=== PATIENT | female | born 1995 | race Caucasian/White ===

== ENCOUNTER 2020-02-11 08:00 | Outpatient (CLI) | payer MEDICAID ==
[2020-02-11 14:41] LABS: H. PYLORIS ANTIGEN STL POSITIVE (Negative)
== END 2020-02-11 08:01 | disposition home or self-care (01) ==
LOC: LAB.R 08:00
DX: A04.8 Other specified bacterial intestinal infections (principal)
CPT/HCPCS: 87338

== ENCOUNTER 2020-04-20 08:00 | Outpatient (CLI) | payer MEDICAID ==
[2020-04-20 14:58] LABS: H. PYLORIS ANTIGEN STL NEGATIVE (Negative)
== END 2020-04-20 23:59 | disposition home or self-care (01) ==
LOC: LAB.R 08:00
PROVIDERS: ATTEND Internal Medicine
DX: A04.8 Other specified bacterial intestinal infections (principal)
CPT/HCPCS: 87338

== ENCOUNTER 2020-06-18 14:10 | Outpatient (CLI) | payer MEDICAID | END 2020-06-18 14:11 | disposition home or self-care (01) | LOC: COV 14:10 | PROVIDERS: ATTEND Surgery | DX: Z01.812 Encounter for preprocedural laboratory examination (principal); R10.9 Unspecified abdominal pain; R19.4 Change in bowel habit; Z20.822 Contact with and (suspected) exposure to COVID-19 ==

== ENCOUNTER 2020-06-22 09:30 | Day surgery (SDC) | payer MEDICAID ==
[2020-06-22 09:46] LABS: HCG UR QUAL NEGATIVE
[2020-06-22] MEDS ORDERED: LACTATED RINGERS 1,000 ML IV ONE ×2 (09:57→12:53)
[2020-06-22] MEDS ORDERED: fentaNYL 250 MCG/5 ML VIAL ONE (12:06)
[2020-06-22] MEDS ORDERED: MIDAZOLAM 2 MG/2 ML VIAL ONE ×3 (12:06→12:25)
[2020-06-22] MEDS ORDERED: LIDO GARGLE 30 ML BOTTLE ONE (12:07)
[2020-06-22] MEDS ORDERED: LIDO GARGLE 30 ML BOTTLE TOP ONE (12:15)
[2020-06-22] MEDS ORDERED: BENZOCAINE/TETRACAINE/BUTAMBEN 20 GM TOP ONE (12:15)
[2020-06-22] MEDS ORDERED: ONDANSETRON 4 MG/2 ML VIAL ONE (12:58)
[2020-06-22 13:29] VITALS: BP 97/64
== END 2020-06-22 09:31 | disposition home or self-care (01) ==
LOC: SDS 09:30
PROVIDERS: ATTEND Surgery
PROC: 0DB68ZX Excision of Stomach, Via Natural or Artificial Opening Endoscopic, Diagnostic (ICD-10-PCS; 2020-06-22)
PROC: 0DB48ZX Excision of Esophagogastric Junction, Via Natural or Artificial Opening Endoscopic, Diagnostic (ICD-10-PCS; 2020-06-22)
PROC: 0DBK8ZZ Excision of Ascending Colon, Via Natural or Artificial Opening Endoscopic (ICD-10-PCS; 2020-06-22)
PROC: 0DBE8ZX Excision of Large Intestine, Via Natural or Artificial Opening Endoscopic, Diagnostic (ICD-10-PCS; 2020-06-22)
PROC: 0DBB8ZX Excision of Ileum, Via Natural or Artificial Opening Endoscopic, Diagnostic (ICD-10-PCS; 2020-06-22)
PROC: 0DB98ZX Excision of Duodenum, Via Natural or Artificial Opening Endoscopic, Diagnostic (ICD-10-PCS; principal; 2020-06-22 10:30)
PROC: 0DB78ZX Excision of Stomach, Pylorus, Via Natural or Artificial Opening Endoscopic, Diagnostic (ICD-10-PCS; 2020-06-22 10:30)
DX: R10.13 Epigastric pain (principal); D12.2 Benign neoplasm of ascending colon; R10.9 Unspecified abdominal pain; R19.4 Change in bowel habit; R11.0 Nausea; K64.8 Other hemorrhoids; Z86.19 Personal history of other infectious and parasitic diseases
CPT/HCPCS: 43239; 45380; 81025; 83630; 87015; 87177; 87209; 87272; 87329; 87493; A9270; J3010; J7120

== ENCOUNTER 2020-08-04 08:00 | Outpatient (CLI) | payer MEDICAID ==
[2020-08-04 15:47] LABS: H. PYLORIS ANTIGEN STL NEGATIVE (Negative)
== END 2020-08-04 23:59 | disposition home or self-care (01) ==
LOC: LAB.R 08:00
PROVIDERS: ATTEND Surgery
DX: B96.81 Helicobacter pylori [H. pylori] as the cause of diseases classified elsewhere (principal)
CPT/HCPCS: 87338

== ENCOUNTER 2020-10-22 08:00 | Outpatient (CLI) | payer MEDICAID ==
[2020-10-22 10:28] LABS: H. PYLORIS ANTIGEN STL NEGATIVE (Negative)
== END 2020-10-22 23:59 | disposition home or self-care (01) ==
LOC: LAB.R 08:00
PROVIDERS: ATTEND Surgery
DX: A04.72 Enterocolitis due to Clostridium difficile, not specified as recurrent (principal); K29.60 Other gastritis without bleeding; B96.81 Helicobacter pylori [H. pylori] as the cause of diseases classified elsewhere
CPT/HCPCS: 87338; 87493

== ENCOUNTER 2020-10-22 08:37 | Outpatient (CLI) | payer MEDICAID | END 2020-10-22 08:38 | disposition home or self-care (01) | LOC: LAB.R 08:37 | PROVIDERS: ATTEND Surgery | DX: A04.72 Enterocolitis due to Clostridium difficile, not specified as recurrent (principal); K29.60 Other gastritis without bleeding; B96.81 Helicobacter pylori [H. pylori] as the cause of diseases classified elsewhere | CPT/HCPCS: 87338; 87493 ==

== ENCOUNTER 2021-02-14 11:15 | Outpatient (CLI) | payer MEDICAID ==
[2021-02-14 12:37] LABS: H. PYLORIS ANTIGEN STL NEGATIVE (Negative)
== END 2021-02-14 11:16 | disposition home or self-care (01) ==
LOC: LAB 11:15
PROVIDERS: ATTEND Surgery
DX: A04.72 Enterocolitis due to Clostridium difficile, not specified as recurrent (principal)
CPT/HCPCS: 87338; 87493

== ENCOUNTER 2021-03-31 10:42 | Outpatient (CLI) | payer MEDICAID | END 2021-03-31 10:43 | disposition home or self-care (01) | LOC: LAB 10:42 | PROVIDERS: ATTEND Surgery | DX: A04.72 Enterocolitis due to Clostridium difficile, not specified as recurrent (principal) | CPT/HCPCS: 87493 ==

== ENCOUNTER 2021-08-22 11:35 | Outpatient (CLI) | payer MEDICAID ==
[2021-08-22 18:38] LABS: THYROID STIMULATING HORMONE 2.26 uIU/mL (0.34-5.60)
== END 2021-08-22 11:36 | disposition home or self-care (01) ==
LOC: LAB.N 11:35
PROVIDERS: ATTEND Nurse Practitioner Family
DX: E55.9 Vitamin D deficiency, unspecified (principal); K90.0 Celiac disease; R63.6 Underweight
CPT/HCPCS: 36415; 82306; 84443

== ENCOUNTER 2021-09-05 08:04 | Outpatient (CLI) | payer MEDICAID ==
--- NOTE | 2021-09-05 09:37 | DEXA Report ---
PROCEDURE: Dexa Spine and/or Hip INDICATIONS: VITAMIN D DEFICIENCY TECHNIQUE: Dual energy x-ray absorptiometry (DXA) was performed on a [employer] System. Regions measur ed are the AP Spine, femoral neck, and if needed forearm. COMPARISON: None. FINDINGS: Lumbar Spine: Bone Mineral Density 1.117 g/cm/cm,T score -0.5, normal Left Hip: Bone Mineral Density 0.980 g/cm/cm,T score -0.2, normal Left Femoral Neck: Bone Mineral Density 0.947 g/cm/cm, T score -0.7, normal (T score greater or equal to -1.0: NORMAL) (T score from -1.1 to -2.4: OSTEOPENIA) (T score less than or equal to -2.5 to: OSTEOPOROSIS) Impression: Normal bone marrow density. Patients with diagnosis of osteoporosis or osteopenia should have regular bone mineral density assess ment. For those eligible for Medicare, routine testing is allowed once every 2 years. Testing frequ ency can be increased for patients who have rapidly progressing disease or for those who are receivin g medical therapy to restore bone mass. Reviewed by: Gena Lyons MD, PhD on 09/05/2021 9:36 AM PDT Approved by: Gena Lyons MD, PhD on 09/05/2021 9:36 AM PDT Station ID: [id number]
== END 2021-09-05 08:05 | disposition home or self-care (01) ==
LOC: DI 08:04
PROVIDERS: ATTEND Nurse Practitioner Family
DX: E55.9 Vitamin D deficiency, unspecified (principal); R63.6 Underweight; K90.0 Celiac disease